=== PATIENT | female | born 1945 | race Caucasian/White ===

== ENCOUNTER 2018-07-31 02:00 | Outpatient (CLI) | payer MEDICARE, OTHER, SELFPAY ==
[2018-07-31 11:38] LABS: Anion Gap 9.7 mmol/L (3-11); BUN 24 mg/dL (7-18); CO2 26.3 mmol/L (21.0-32.0); CREATININE 0.78 mg/dL (0.55-1.02); Calcium 9.1 mg/dL (8.5-10.1); Chloride 102 mmol/L (98-107); Glucose 84 mg/dL (70-100); Potassium 4.1 mmol/L (3.5-5.1); Sodium 138 mmol/L (136-145); TSH (W/Ref FT4) 0.56 uIU/mL (0.358-3.74)
== END 2018-07-31 02:20 ==
PROVIDERS: PCP Family Medicine; Visit Provider Family Medicine
DX: I10 Essential (primary) hypertension (principal); E03.9 Hypothyroidism, unspecified
CPT/HCPCS: 36415; 80048; 84443

== ENCOUNTER 2019-08-12 02:50 | Outpatient (CLI) | payer MEDICARE, OTHER, SELFPAY ==
[2019-08-12 16:46] LABS: Anion Gap 6.1 mmol/L (3-11); BUN 18 mg/dL (7-18); CO2 30.9 mmol/L (21.0-32.0); CREATININE 0.75 mg/dL (0.55-1.02); Calcium 9.3 mg/dL (8.5-10.1); Calculated LDL 156 mg/dL (<100); Chloride 100 mmol/L (98-107); Cholesterol 243 mg/dL (<200); Glucose 91 mg/dL (74-106); HDL Cholesterol 71 mg/dL (40-60); Potassium 3.8 mmol/L (3.5-5.1); Sodium 137 mmol/L (136-145); Triglyceride 82 mg/dL (<150)
== END 2019-08-12 03:10 ==
PROVIDERS: PCP Family Medicine; Visit Provider Family Medicine
DX: E03.9 Hypothyroidism, unspecified (principal); E78.5 Hyperlipidemia, unspecified; I10 Essential (primary) hypertension
CPT/HCPCS: 36415; 80048; 80061; 84443

== ENCOUNTER 2019-11-06 19:32 | Outpatient (REF) | payer MEDICARE, OTHER, SELFPAY | END 2019-11-06 19:52 | LOC: LBN 19:32 | PROVIDERS: PCP Family Medicine | DX: R49.0 Dysphonia (principal) | CPT/HCPCS: 87070 ==

== ENCOUNTER 2020-07-30 10:05 | Outpatient (CLI) | payer MEDICARE, OTHER, SELFPAY ==
[2020-07-30 12:23] LABS: HCT 35.7 % (36.0-46.0); HGB 10.8 g/dL (11.2-15.7); MCH 24.3 pg (27.0-33.0); MCHC 30.3 % (32.0-36.0); MCV 80.2 fL (80-95); MPV 11.5 fL (8.0-11.0); Platelet Count 292 10^3/uL (130-400); RBC 4.45 10^6/uL (3.93-5.22); RDW-SD 40.7 fL; WBC 5.03 10^3/uL (4.4-10.8)
[2020-07-30 12:45] LABS: TSH (W/Ref FT4) 0.52 uIU/mL (0.36-3.74)
== END 2020-07-30 10:06 | disposition home or self-care (01) ==
LOC: LOS 10:06
PROVIDERS: PCP Family Medicine; Visit Provider Family Medicine
DX: D64.9 Anemia, unspecified (principal); E03.9 Hypothyroidism, unspecified
CPT/HCPCS: 36415; 85027; 84443

== ENCOUNTER 2020-07-30 16:07 | Outpatient (REF) | payer MEDICARE, OTHER, SELFPAY ==
[2020-07-30 19:29] LABS: Ferritin 7 ng/mL (8-252)
[2020-07-30 19:33] LABS: Iron 20 ug/dL (50-170); Total Iron Binding Capacity 481 ug/dL (250-450); Transferrin Sat 4 % (15-50)
== END 2020-07-30 16:08 | disposition home or self-care (01) ==
LOC: LBN 16:07
PROVIDERS: PCP Family Medicine; Visit Provider Family Medicine
DX: D64.9 Anemia, unspecified (principal)
CPT/HCPCS: 82728; 83540; 83550

== ENCOUNTER 2020-08-09 01:26 | Outpatient (CLI) | payer MEDICARE, OTHER, SELFPAY ==
--- NOTE | 2020-08-09 15:05 | DI.DEXA_ITS ---
Exam(s) XR DEXA BONE DENSITY W/WO IFEOMA EXAM: XR DEXA BONE DENSITY W/WO IFEOMA CLINICAL HISTORY: screening for osteoporosis IN POSTMENOPAUSAL WOMAN,Z78.0 TECHNIQUE: COMPARISON: CR LUMBAR SPINE COMPLETE from 03/18/2010 Prior DXA scan is 04/24/2007. FINDINGS: Lateral Spine Image: Unremarkable. No compression deformities identified. Left hip: Total T-Score: -1.0. This compares to -0.6 on the prior examination. Total Z-Score: 0.9 T- and Z-scores: Within normal limits. Lumbar Spine: Total T-Score: -3.3. This compares to -2.7 on the prior examination. Total Z-Score: -0.8 T- and Z-scores: Findings consistent with osteoporosis. IMPRESSION: Osteoporosis in the lumbar spine.
== END 2020-08-09 01:46 ==
PROVIDERS: PCP Family Medicine; Visit Provider Family Medicine
DX: M81.0 Age-related osteoporosis without current pathological fracture (principal); Z78.0 Asymptomatic menopausal state
CPT/HCPCS: 77080

== ENCOUNTER 2021-02-04 01:16 | Outpatient (CLI) | payer MEDICARE, OTHER, SELFPAY ==
[2021-02-04 12:59] LABS: HCT 42.6 % (36.0-46.0); HGB 13.3 g/dL (11.2-15.7); MCH 27.9 pg (27.0-33.0); MCHC 31.2 % (32.0-36.0); MCV 89.3 fL (80-95); MPV 10.8 fL (8.0-11.0); Platelet Count 243 10^3/uL (130-400); RBC 4.77 10^6/uL (3.93-5.22); RDW 11.2 % (11.7-14.6); RDW-SD 36.2 fL
[2021-02-04 13:22] LABS: Iron 85 ug/dL (50-170); Total Iron Binding Capacity 338 ug/dL (250-450); Transferrin Sat 25 % (15-50)
[2021-02-04 13:35] LABS: AST 27 U/L (15-37); CREATININE 0.7 mg/dL (0.55-1.02); Calculated LDL 175 mg/dL (<100); Cholesterol 253 mg/dL (<200); Ferritin 68 ng/mL (8-252); HDL Cholesterol 63 mg/dL (40-60); TSH (W/Ref FT4) 1.11 uIU/mL (0.36-3.74); Triglyceride 75 mg/dL (<150)
== END 2021-02-04 01:17 | disposition home or self-care (01) ==
LOC: LOS 01:17
PROVIDERS: PCP Family Medicine; Visit Provider Family Medicine
DX: E03.9 Hypothyroidism, unspecified (principal); E78.5 Hyperlipidemia, unspecified; D64.9 Anemia, unspecified; E11.9 Type 2 diabetes mellitus without complications; K76.0 Fatty (change of) liver, not elsewhere classified
CPT/HCPCS: 36415; 80061; 85027; 82565; 82728; 83540; 83550; 84443; 84450

== ENCOUNTER 2021-08-11 03:42 | Outpatient (CLI) | payer MEDICARE, OTHER, SELFPAY ==
[2021-08-11 12:22] LABS: HCT 43.1 % (36.0-46.0); HGB 13.5 g/dL (11.2-15.7); MCH 27.8 pg (27.0-33.0); MCHC 31.3 % (32.0-36.0); MCV 89 fL (80-95); Platelet Count 221 10^3/uL (130-400); RBC 4.85 10^6/uL (3.93-5.22); RDW 11.3 % (11.7-14.6); RDW-SD 36.3 fL; WBC 4.83 10^3/uL (4.4-10.8)
[2021-08-11 12:38] LABS: Iron 73 ug/dL (50-170)
[2021-08-11 12:48] LABS: TSH (W/Ref FT4) 0.23 uIU/mL (0.36-3.74)
[2021-08-11 13:15] LABS: FREE T4 1.16 ng/dL (0.76-1.46)
== END 2021-08-11 03:43 | disposition home or self-care (01) ==
LOC: LOS 03:43
PROVIDERS: PCP Family Medicine; Visit Provider Family Medicine
DX: D64.9 Anemia, unspecified (principal); E03.9 Hypothyroidism, unspecified; R53.83 Other fatigue
CPT/HCPCS: 36415; 85027; 83540; 84439; 84443

== ENCOUNTER 2021-12-16 01:54 | Outpatient (CLI) | payer MEDICARE, OTHER, SELFPAY ==
--- OUTSIDE RECORDS SUMMARY | 2021-12-16 01:59 | XMS_ITS | Encounter Summary ---
:1945 Author Organization [facility] [address] Care Team Providers Name Role Phone Mariluz Cortez MD Primary Care Provider Encounter Details Date Type Department Care Team Description 06/13/2013 Hospital Encounter Mammography at [facility], [facility] Mariluz Wan MD [address] [place] [address] [place] [address] Social History Tobacco Use Types Packs/Day Years Used Date Never Assessed Sex Assigned at Date Recorded Not on file documented as of this encounter Medications at Time of Discharge Medication Sig Dispensed Refills Start Date End Date levothyroxine (LEVOXYL) 75 mcg tablet 0 04/05/2006 documented as of this encounter Plan of Treatment Not on filedocumented as of this encounter Procedures Procedure Name Priority Date/Time Associated Diagnosis Comme nts MAMMO SCREENING CAD Routine 06/13/2013 1:35 PM Re sults for this BILATERAL EST procedure are i n the results section. documented in this encounter Results Mammo digital bilateral Screening with CAD (06/13/2013 1:35 PM EST) Anatomical Region Laterality Modality Breast Bilateral Mammography Specimen (Source) Anatomical Collection Method Collection Time Re ceived Time Location / / Volume Laterality 06/13/2013 1:35 PM EST Narrative 06/16/2013 11:26 AM EDT Reason for Exam: Screening ?? Technique: Craniocaudal (CC) and Medio-l ateral Oblique (MLO) views of both breasts obtained with direct digital cap ture. In addition to routine 2-D imaging, this exam was also performed wi th 3-D Tomographic Imaging (MLO and CC). ?? The exam was evaluated by CAD version 8. 3.17. ?? Findings: ?? This is a negative mammogram (ACR Catego ry 1). There is a stable fibroglandular pattern without significant change from prior studies. There is no mammographic evidence of can cer. The breasts are heterogeneously dense which limits mammographic sensitiv ity for the detection of malignancy. ?? CONCLUSION: This is a NEGATIVE mammogram (ACR Catego ry 1). ?? Routine screening mammography is recomme nded with the frequency dependent upon the patients age and breast cancer risk factors. A letter has been sent to this patient b y the breast imaging center. ?? Procedure Note Michelle Whitehead MD - 06/16/2013Formattin g of this note might be different from the original. Reason for Exam: Screening Technique: Craniocaudal (CC) and Medio-l ateral Oblique (MLO) views of both breasts obtained with direct digital cap ture. In addition to routine 2-D imaging, this exam was also performed wi th 3-D Tomographic Imaging (MLO and CC). The exam was evaluated by CAD version 8. 3.17. Findings: This is a negative mammogram (ACR Catego ry 1). There is a stable fibroglandular pattern without significant change from prior studies. There is no mammographic evidence of can cer. The breasts are heterogeneously dense which limits mammographic sensitiv ity for the detection of malignancy. CONCLUSION: This is a NEGATIVE mammogram (ACR Catego ry 1). Routine screening mammography is recomme nded with the frequency dependent upon the patients age and breast cancer risk factors. A letter has been sent to this patient b y the breast imaging center. Mariluz Cortez MD IMG MAMMO ORDERABLES documented in this encounter Visit Diagnoses Not on filedocumented in this encounter Care Teams Toll Relief Operator Relationship Specialty Start Date End Date Mariluz Cortez MD PCP - General 03/01/10 08/25/15 [address] [place] [address] documented as of this encounter
--- OUTSIDE RECORDS SUMMARY | 2021-12-16 01:59 | XMS_ITS | Encounter Summary ---
:1945 Author Organization [facility] Address [address] [place] [address] Care Team Providers Name Role Phone Cliff Cano MD Primary Care Provider Encounter Details Date Type Department Care Team Description 07/02/2017 Hospital Encounter Mammography at [facility] Cliff Cano Encounter for [facility] MD Kole screening mammogram Drive [address] [place] [address] for breast cancer [place], [place] [address] [address] [place], [place] [phone] [id number] Social History Tobacco Use Types Packs/Day Years [...] Diagnosis Comme nts MAMMO SCREENING CAD Routine 07/02/2017 2:00 PM Encounter for R esults for this AND MICHAEL BILATERAL EDT screening mammogram pr ocedure are in for breast cancer the result s section. documented in this encounter Results Mammo Screening Cad and Michael Bilateral (07/02/2017 2:00 PM EDT) Anatomical Region Laterality Modality Breast Bilateral Mammography Specimen (Source) Anatomical Location Collection Method / Collectio n Time Received Time / Laterality Volume Narrative 07/03/2017 10:12 AM EDT BILATERAL MAMMOGRAPHY REASON FOR EXAM: Screening TECHNIQUE: CC and MLO views were obtaine d of each breast using standard 2-D mammography as well as 3-D tomosynth esis. Computer aided detection was used. This is compared with prior images . FINDINGS: ??The breasts are heterogeneou sly dense, which may obscure small masses. There are no suspicious microcal cifications, masses, or areas of distortion. The pattern is stable. CONCLUSION: No mammographic evidence of malignancy. RECOMMENDATION: The [employer] and The Society of Breast Imaging recommend annual screenin g beginning at age 40 for the general female population. Screening juan m uld continue as long as a woman is in good health and is expected to live 1 0 more years or longer. All women should be familiar with the known benefi ts, limitations, and potential harms linked to breast cancer screening. They should also know how their breasts normally look and feel and repor t any breast changes to a health care provider right away. Some women - b ecause of their family history, a genetic tendency, or certain other facto rs - should be screened with MRIs along with mammograms. (The number of wo men who fall into this category is very small.) The patient and health care provider should discuss the patient history and decide if earlier sc reening and breast MRI are appropriate. A result letter has been sent to this pa dhruv by the [facility]. BIRADS CATEGORY 1: NEGATIVE Cliff Cano MD IMG MAMMO ORDERABLES documented in this encounter Visit Diagnoses Diagnosis Encounter for screening mammogram for br east cancer documented in this encounter Care Teams Fabrication Machine Operator Relationship Specialty Start Date End Date Cliff Cano MD PCP - General Family Medicine 08/26/[address] [place] [address] [address] [place] [address] documented as of this encounter
--- OUTSIDE RECORDS SUMMARY | 2021-12-16 01:59 | XMS_ITS | Encounter Summary ---
:1945 Author Organization [place] [address] Care Team Providers Name Role Phone Cliff Cano MD Primary Care Provider [phone] Encounter Details Date Type Department Care Team Description 06/11/2018 Hospital Encounter Mammography/DXA at [facility] Cano Encounter for [facility] MD Kole screening mammogram [address] [address] [phone] Social History Tobacco Use Types Packs/Day Years [...] Diagnosis Comme nts MAMMO SCREENING CAD Routine 06/11/2018 10:35 AM Encounter for Results for this AND MICHAEL BILATERAL EST screening mammogram pr ocedure are in for breast cancer the result s section. documented in this encounter Results Mammo Screening Cad and Michael Bilateral (06/11/2018 10:35 AM EST) Anatomical Region Laterality Modality Breast Bilateral Mammography Specimen (Source) Anatomical Location Collection Method / Collectio n Time Received Time / Laterality Volume Narrative 06/11/2018 10:54 AM EST BILATERAL MAMMOGRAPHY REASON FOR EXAM: Screening TECHNIQUE: [...] CONCLUSION: No mammographic evidence of malignancy. RECOMMENDATION: Medical organizations ag ree that annual screening mammography beginning at age 40 saves th e most lives. The risks of screening are negligible compared to dyi ng from breast cancer or suffering from more aggressive treatment required when detected at a later stage. No woman is at low risk for breast cancer. Some women, because of their family history, a genetic tendency, or c ertain other factors, should be screened with breast MRI along with mamm ograms. (The number of women who fall into this category is very small). The patient and health care provider should discuss the patient hist ory and decide if earlier screening and breast MRI are appropriate . Screening should continue as long as a woman is in good health and is expected to live 10 years or longer. Screening mammography may not de tect 10-15% of breast cancers. Women should report any breast changes t o a health care provider right away. A result letter has been sent to this pa dhruv by the [facility]. BIRADS CATEGORY 1: NEGATIVE Cliff Cano MD IMG MAMMO ORDERABLES documented in this encounter Visit Diagnoses Diagnosis Encounter for screening mammogram for br east cancer documented in this encounter Care Teams Lithographic Proofer Apprentice Relationship Specialty Start Date End Date Cliff Cano MD PCP - General Family Medicine 08/26/[address] [place] [address] [address] [place] [address] documented as of this encounter
--- OUTSIDE RECORDS SUMMARY | 2021-12-16 01:59 | XMS_ITS | Clinical Summary ---
:1945 Author Organization [facility] [place] [address] Care Team Providers Name Role Phone Cliff Cano MD Primary Care Provider Medications Medication Sig Dispensed Refills Start Date End Date Status levothyroxine (LEVOXYL) 75 mcg 0 6 Active tablet Family History Medical History Relation Comments Breast Cancer Paternal Aunt Relation Status Comments Paternal Aunt Social History Tobacco Use Types Packs/Day Years Used Date Never Assessed Sex Assigned at Date Recorded Not on file Plan of Treatment Health Maintenance Due Date Last Done Comments Covid-19 Vaccine (#1) 02/27/1949 Hepatitis C Screening 02/27/1962 Tdap adult 02/27/1963 Tetanus vaccine 02/27/1963 Zoster vaccine (1 of 2) 02/27/1994 Advance Directive 02/27/1999 Pneumoccocal Vaccine: 65+ (1 - PCV) 02/27/2009 Influenza (Flu) vaccine (1 of 1 - Influenza standard 12/08/2021 series) Bone Density Scan Completed 06/24/2014 Insurance Payer Benefit Plan / Subscriber ID Effective Dates Phone Addre ss Type Group MEDICARE MEDICARE PART [id number] 2009-Prese [phone] [id number] [place] [address] [employer] [id number] 2009-Prese [address] [place] [address] Care Teams Impact Hammer Operator Relationship Specialty Start Date End Date Cliff Cano MD PCP - General Family Medicine 08/26/[address] [place] [address]
--- OUTSIDE RECORDS SUMMARY | 2021-12-16 01:59 | XMS_ITS | Encounter Summary ---
:1945 Author Organization [facility] [place] [address] Care Team Providers Name Role Phone Mariluz Cortez MD Primary Care Provider Encounter Details Date Type Department Care Team Description 06/13/2012 Hospital Encounter Mammography [place] [facility] Mariluz Wan MD [address] [place] [address] [place] [address] Social History Tobacco Use Types Packs/Day [...] Diagnosis Comme nts MAMMO SCREENING CAD Routine 06/13/2012 10:49 AM R esults for this BILATERAL EST procedure are i n the results section. documented in this encounter Results Mammo digital bilateral Screening with CAD (06/13/2012 10:49 AM EST) Anatomical Region Laterality Modality Breast Bilateral Mammography Specimen (Source) Anatomical Collection Method Collection Time Re ceived Time Location / / Volume Laterality 06/13/2012 10:49 AM EST Narrative 06/14/2012 9:25 AM EST Reason for Exam: Screening Technique: Craniocaudal (CC) and Medio-l ateral Oblique (MLO) views of both breasts obtained with direct digital cap ture. In addition to the routine 2D imaging th is exam was also performed with 3D tomographic imaging in MLO and CC projec tions. The exam was evaluated by CAD version 8. 3.17. Findings: This is a negative mammogram (ACR Catego ry 1). ??There is a stable fibroglandular pattern without significa nt change from prior studies. There is no mammographic evidence of can cer. ??The breasts are heterogeneously dense which limits mammographic sensitiv ity for the detection of malignancy. CONCLUSION: This is a NEGATIVE mammogram (ACR Catego ry 1). ?? Routine screening mammography is recomme nded with the frequency dependent upon the patient's age and breast cancer risk factors. A letter has been sent to this patient b y the breast imaging center. Procedure Note Fran Marion MD - 06/14/2012Format ting of this note might be different from the original. Reason for Exam: Screening Technique: Craniocaudal (CC) and Medio-l ateral Oblique (MLO) views of both breasts obtained with direct digital cap ture. In addition to the routine 2D imaging th is exam was also performed with 3D tomographic imaging in MLO and CC projec tions. The exam was evaluated by CAD version 8. 3.17. Findings: This is a negative mammogram (ACR Catego ry 1). There is a stable fibroglandular pattern without significa nt change from prior studies. There is no mammographic evidence of can cer. The breasts are heterogeneously dense which limits mammographic sensitiv ity for the detection of malignancy. CONCLUSION: This is a NEGATIVE mammogram (ACR Catego ry 1). Routine screening mammography is recomme nded with the frequency dependent upon the patient's age and breast cancer risk factors. A letter has been sent to this patient b y the breast imaging center. Mariluz Cortez MD IMG MAMMO ORDERABLES documented in this encounter Visit Diagnoses Not on filedocumented in this encounter Care Teams Pci Security Consultant Relationship Specialty Start Date End Date Mariluz Cortez MD PCP - General 03/01/10 08/25/15 [address] [place] [address] documented as of this encounter
--- OUTSIDE RECORDS SUMMARY | 2021-12-16 01:59 | XMS_ITS | Encounter Summary ---
:1945 Author Organization [facility] [place] [address] Care Team Providers Name Role Phone Mariluz Cortez MD Primary Care Provider Encounter Details Date Type Department Care Team Description 06/12/2011 Hospital Encounter Mammography at [facility], [facility] Mariluz Wan MD [address] [place] [address] [place] [address] Social History Tobacco Use Types Packs/Day [...] Diagnosis Comme nts MAMMO SCREENING CAD Routine 06/12/2011 11:33 AM R esults for this BILATERAL EST procedure are i n the results section. documented in this encounter Results MAMMO DIGITAL BILATERAL SCREENING WITH CAD (06/12/2011 11:33 AM EST) Anatomical Region Laterality Modality Breast Bilateral Mammography Specimen (Source) Anatomical Collection Method Collection Time Re ceived Time Location / / Volume Laterality 06/12/2011 11:33 AM EST Narrative 06/14/2011 3:50 PM EST BILATERAL MAMMOGRAPHY ?? REASON FOR EXAM: Screening ?? TECHNIQUE: Cranio-caudal (CC) and mediol ateral oblique (MLO) views of both breasts obtained with direct digital cap ture. The exam was evaluated by CAD Version 8.3.17. In addition to the routi ne 2D imaging this exam was also performed with 3D tomographic imaging in MLO and CC projections. ?? FINDINGS: This is a negative mammogram ( ACR Category 1). There is a stable fibroglandular pattern without significa nt change as compared to prior studies. There is no mammographic evidence of can cer. ? The breasts are heterogeneously dense wh ich may limit mammographic sensitivity for the detection of malignancy. ? CONCLUSION ?? This is a NEGATIVE mammogram (ACR Catego ry 1). Routine screening mammography is recommended with the frequency dependent on the patient's age and breast cancer risk factors. ?? A letter has been sent to this patient b y the [facility]. Procedure Note Michelle Whitehead MD - 06/14/2011Formattin g of this note might be different from the original. BILATERAL MAMMOGRAPHY REASON FOR EXAM: Screening TECHNIQUE: Cranio-caudal (CC) and mediol ateral oblique (MLO) views of both breasts obtained with direct digital cap ture. The exam was evaluated by CAD Version 8.3.17. In addition to the routi ne 2D imaging this exam was also performed with 3D tomographic imaging in MLO and CC projections. FINDINGS: This is a negative mammogram ( ACR Category 1). There is a stable fibroglandular pattern without significa nt change as compared to prior studies. There is no mammographic evidence of can cer. The breasts are heterogeneously dense wh ich may limit mammographic sensitivity for the detection of malignancy. CONCLUSION This is a NEGATIVE mammogram (ACR Catego ry 1). Routine screening mammography is recommended with the frequency dependent on the patient's age and breast cancer risk factors. A letter has been sent to this patient b y the [facility] [place]. Mariluz Cortez MD IMG MAMMO ORDERABLES documented in this encounter Visit Diagnoses Not on filedocumented in this encounter Care Teams Truck Farmer Relationship Specialty Start Date End Date Mariluz Cortez MD PCP - General 03/01/10 08/25/15 [address] [place] [address] documented as of this encounter
--- OUTSIDE RECORDS SUMMARY | 2021-12-16 01:59 | XMS_ITS | Encounter Summary ---
:1945 Author Organization [facility] [address] Care Team Providers Name Role Phone Cliff Cano MD Primary Care Provider [phone] Encounter Details Date Type Department Care Team Description 06/29/2016 Hospital Encounter Mammography at [facility] Cliff Cano Visit for screening [facility] MD Kole mammogram [address] [place] [address] [address] [address] [place], [place] [phone] [address] Social History Tobacco Use Types Packs/Day Years [...] Diagnosis Comme nts MAMMO SCREENING CAD Routine 06/29/2016 10:38 AM Visit for scre ening Results for this AND MICHAEL BILATERAL EDT mammogram procedure are in the results section. documented in this encounter Results Mammo Screen CAD and Michael Bilat (Generic) (06/29/2016 10:38 AM EDT) Anatomical Region Laterality Modality Breast Bilateral Mammography Specimen (Source) Anatomical Location Collection Method / Collectio n Time Received Time / Laterality Volume Narrative 06/29/2016 10:44 AM EDT Bilateral mammography Reason for exam: Technique: CC and MLO views were obtaine d of each breast using standard 2-D mammography as well as 3-D tomosynthesis . Computer aided detection was used. Comparison: This is compared with prior images. Findings: The breasts are heterogeneousl y dense, which may obscure small masses. There are no suspicious microcalcificati ons, masses, or areas of distortion. The pattern is stable. Bilateral stable well -circumscribed benign-appearing nondominant masses. Conclusion: No mammographic evidence of malignancy. Recommendation: Routine screening. BI-RADS Category 2: Benign findings. * ??The [employer] an d The Society of Breast Imaging recommend annual screening beginning at age 40 for the general female population. * ??Screening should continue as long as a woman is in good health and is expected to live 10 more years or longer . * ??All women should be familiar with th e known benefits, limitations, and potential harms linked to breast cancer screening. They also should know how their breasts normally look and feel and report any breast changes to a health care provider right away. * ??Some women, because of their family history, a genetic tendency, or certain other factors, should be screened with M RIs along with mammograms. (The number of women who fall into this category is very small.) The patient and health care provider should discuss the patient hist ory and decide if earlier screening and breast MRI are appropriate. Cliff Cano MD IMG MAMMO ORDERABLES documented in this encounter Visit Diagnoses Diagnosis Visit for screening mammogram Other screening mammogram documented in this encounter Care Teams Dispersion Mixer Relationship Specialty Start Date End Date Cliff Cano MD PCP - General Family Medicine 08/26/[address] [place] [address] documented as of this encounter
--- OUTSIDE RECORDS SUMMARY | 2021-12-16 01:59 | XMS_ITS | Encounter Summary ---
:1945 Author Organization [facility] [place] [address] Care Team Providers Name Role Phone Mariluz Cortez MD Primary Care Provider Encounter Details Date Type Department Care Team Description 06/09/2010 Hospital Encounter [facility] Maycol Cortez MD [address] [place] [address] (Wo rk) Social History Tobacco Use Types Packs/Day Years Used Date Never Assessed Sex Assigned at Date Recorded Not on file documented as of this encounter Medications at Time of Discharge Medication Sig Dispensed Refills Start Date End Date levothyroxine (LEVOXYL) 75 mcg tablet 0 04/05/2006 documented as of this encounter Plan of Treatment Not on filedocumented as of this encounter Visit Diagnoses Not on filedocumented in this encounter Care Teams Internship Relationship Specialty Start Date End Date Mariluz Cortez MD PCP - General 03/01/10 08/25/15 [address] [place] [address] documented as of this encounter
--- OUTSIDE RECORDS SUMMARY | 2021-12-16 01:59 | XMS_ITS | Encounter Summary ---
:1945 Author Organization [facility] [place] [address] Care Team Providers Name Role Phone Mariluz Cortez MD Primary Care Provider Encounter Details Date Type Department Care Team Description 06/24/2014 [facility] [place] [address] Social History Tobacco Use Types Packs/Day [...] Priority Date/Time Associated Diagnosis Comme nts MAMMO 2D DIGITAL Routine 06/24/2014 10:59 AM Resu lts for this SCREEN DUC EDT procedure are i n BILATERAL the results section. documented in this encounter Results Mammography Screen Duc 2D Bilateral (06/24/2014 10:59 AM EDT) Anatomical Region Laterality Modality Breast Bilateral Mammography Specimen (Source) Anatomical Collection Method Collection Time Re ceived Time Location / / Volume Laterality 06/24/2014 10:59 AM EDT Narrative 06/25/2014 8:05 AM EDT Reason for Exam: Screening ?? [...] this patient b y the breast imaging [place]. ?? Procedure Note Melissa Smith MD - 5 Reason for Exam: Screening Technique: Craniocaudal (CC) [...] this patient b y the breast imaging [place]. Mariluz Cortez MD IMG MAMMO ORDERABLES documented in this encounter Visit Diagnoses Not on filedocumented in this encounter Care Teams E Commerce Manager Relationship Specialty Start Date End Date Mariluz Cortez MD PCP - General 03/01/10 08/25/15 [address] [place] [address] documented as of this encounter
--- OUTSIDE RECORDS SUMMARY | 2021-12-16 01:59 | XMS_ITS | Encounter Summary ---
:1945 Author Organization [facility] Address [facility] [place] [address] Care Team Providers Name Role Phone Mariluz Cortez MD Primary Care Provider Encounter Details Date Type Department Care Team Description 06/28/2015 Hospital Encounter Mammography at [facility] [place], Encounter for [facility] MD Mariluz screening mammogram [address] for breast cancer [place], [place], [address] [place] [address] Social History Tobacco Use Types Packs/Day Years [...] Diagnosis Comme nts MAMMO SCREENING CAD Routine 06/28/2015 1:40 PM Encounter for R esults for this AND DUC BILATERAL EDT screening mammogram pr ocedure are in for breast cancer the result s section. documented in this encounter Results Mammo Digital Bilateral Screening With CAD and Tomosynthesis (06/28/2015 1:40 PM EDT) Anatomical Region Laterality Modality Breast Bilateral Mammography Specimen (Source) Anatomical Location Collection Method / Collectio n Time Received Time / Laterality Volume Narrative 06/29/2015 9:10 AM EDT BILATERAL MAMMOGRAPHY REASON FOR EXAM: [...] No mammographic evidence of malignancy. RECOMMENDATION: [employer] and The Society of [...] Breast [facility] Center. BIRADS CATEGORY 1: NEGATIVE Mariluz Cortez MD IMG MAMMO ORDERABLES documented in this encounter Visit Diagnoses Diagnosis Encounter for screening mammogram for br east cancer documented in this encounter Care Teams Nitrate Operator Relationship Specialty Start Date End Date Mariluz Cortez MD PCP - General 03/01/10 08/25/15 [address] [place] [address] documented as of this encounter
--- OUTSIDE RECORDS SUMMARY | 2021-12-16 01:59 | XMS_ITS | Encounter Summary ---
:1945 [place] [address] Care Team Providers Name Role Phone Mariluz Cortez MD Primary Care Provider Encounter Details Date Type Department Care Team Description 05/25/2006 Orders Only Radiology Fran Marion MD [facility] [place] [address] DIAGNOSTIC RADIOLOGY [phone] [place] [id number] (Wo rk) Social History Tobacco Use Types Packs/Day Years Used Date Never Assessed Sex Assigned at Date Recorded Not on file documented as of this encounter Plan of Treatment Not on filedocumented as of this encounter Procedures Procedure Name Priority Date/Time Associated Diagnosis Comme nts FILM LIBRARY Routine 05/25/2006 9:30 AM Results f or this STORAGE ONLY MAMMO EST procedure are in the results section. documented in this encounter Results Film Library- Storage only Mammo (05/25/2006 9:30 AM EST) Anatomical Region Laterality Modality Other Specimen (Source) Anatomical Collection Method Collection Time Re ceived Time Location / / Volume Laterality 05/25/2006 9:30 AM EST Narrative 05/29/2013 9:50 PM EST This is a non-reportable exam. Procedure Note Rik Corado - 05/29/2013Formatting of t his note might be different from the original. This is a non-reportable exam. Fran Marion MD IMG FILM LIBRARY ORDERABLES documented in this encounter Visit Diagnoses Not on filedocumented in this encounter Care Teams Entry Specialist Relationship Specialty Start Date End Date Mariluz Cortez MD PCP - General 03/01/10 08/25/15 [address] [place] [address] documented as of this encounter
--- OUTSIDE RECORDS SUMMARY | 2021-12-16 02:00 | XMS_ITS | Encounter Summary ---
:1945 Author Organization [facility] Address [address] [place] [address] Care Team Providers Name Role Phone Unknown, Provider Primary Care Provider Encounter Details Date Type Department Care Team Description 01/24/2010 Results Only [facility] Phani Campoverde MD Laboratory Services - [address] [place] [address] [place] [address] [place] [address] [phone] Social History Tobacco Use Types Packs/Day Years Used Date Never Assessed Sex Assigned at Date Recorded Not on file documented as of this encounter Plan of Treatment Not on filedocumented as of this encounter Procedures Procedure Name Priority Date/Time Associated Diagnosis Comme [facility] SURGICAL PATHOLOGY Routine 01/24/2010 0:00 EDT Re sults for this procedure are i n the results section. documented in this encounter Results SURGICAL PATHOLOGY (01/24/2010 0:00 EDT) Pathology Report: SURGICAL PATHOLOGY REPORT ? T[facility]ARA MATHIAS Reports generated via [employer] interface contain original data; ? LAB however they are lacking the format of the original report. ? Caution should be taken when reading/interpreting unformatted reports. ? Name: ? BOUDREAUX, SYBIL ? Accession #: ? [id number] ? : ? 1945 (Age: 64) ??F ? Collec t Date: ? 01/24/2010 ? Location: ? [facility] ? R eceive Date: ? 01/24/2010 ? Provider: PHANI WALKO MD ? Copy to: LIBERTAD PATEL MD ? Final Pathologic Diagnosis: ? A. ?Colon, asce nding, polyp, biopsies: ? 1. ?Fragments o f hyperplastic polyps. ? B. ?Colon, sigm oid, biopsy: ? 1. ?No specific pathological findings. ? C. ?Rectum, hannah yp, biopsy: ? 1. ?Hyperplasti c polyp. ??See comment. ? Comment: ? Deeper sections were examined on specimen (C). ??(Dr. Fonseca)/ljn ? Document reviewed and electr onically signed by: ? SHADI B AMBAYE MD ? Report ??Date: 01/27/2010 15 :23 ? By the signature above, the attending physician certifies that he/she has ? personally conducted a gross and/or microscopic examination of the described ? specimens and rendered or co nfirmed the above diagnosis. ? Specimen(s) Received: ? A. ?Ascending c olon polyp (#1) ? B. ? Sigmoid colon (#2) ? C. ? rectal polyp (#3) ? Clinical History: ? Colorectal screen; B. ? colitis ? Gross Description: ? Received in [facility]' s fixative labelled Sybil Boudreaux and ascending colon polyp are two sanchez-pin k tissues measuring 0.2 x 0.2 x 0.2 cm and 0.8 x 0.4 x 0.2 cm. ??The larger speci men is trisected and submitted entirely as (A1) and ?? the smaller specimen is subm itted intact as (A2). ? Received in [facility]'s fixat steve labelled Sybil Boudreaux and sigmoid colon ? colitis is a sanchez-pink tissu e measuring 0.1 x 0.1 x 0.1 cm. ??The specimen is ? submitted entirely as (B). ? Received in [facility]'s fixat steve labelled Sybil Boudreaux and ? rectal polyp is a sanchez-pink tissue measuri ng 0.1 x 0.1 x 0.1 cm. ??The specimen is submitted ?? entirely as (C). ??(Danay grigsby)/kmm ? End of Report ? Specimen Performing Organization Address City/State/ZIP Code Phon e Number [facility] [address] [place] [address] SERVICES [facility] [address] [place] [address] documented in this encounter Visit Diagnoses Not on filedocumented in this encounter Care Teams Bander And Cellophaner Machine Relationship Specialty Start Date End Date Unknown, Provider, PCP - General 05/04/09 documented as of this encounter
--- OUTSIDE RECORDS SUMMARY | 2021-12-16 02:00 | XMS_ITS | Encounter Summary ---
:1945 Author Organization [facility] Address [address] [place] [address] Care Team Providers Name Role Phone Unknown, Provider Primary Care Provider Encounter Details Date Type Department Care Team Description 05/04/2009 Orders Only [facility] Maycol Cortez MD Laboratory Services - [address] [facility] [place] [address] [place] [address] [place] [address] [phone] Social History Tobacco Use Types Packs/Day Years Used Date Never Assessed Sex Assigned at Date Recorded Not on file documented as of this encounter Plan of Treatment Not on filedocumented as of this encounter Procedures Procedure Name Priority Date/Time Associated Comments Diagnosis HPV DETECTION, HIGH Routine 05/04/2009 19:38 Resu lts for this RISK TYPES EST procedure are i n the results section. CYTOPATHOLOGY Routine 05/04/2009 0:00 Results for this EST procedure are i n the results section. documented in this encounter Results HUMAN PAPILLOMA VIRUS DNA TEST (05/04/2009 19:38 EST) Specimen Description Cervix, ThinPrep [facility] L AB vial Result Negative for HPV [facility] types 16, 18, 31, 33, 35, 39, 45, 51, 52, 56, 58, 59, and 68. Report Status Final [facility] 05/12/2009 Specimen Performing Organization Address City/State/ZIP Code Phon e Number [facility] [address] [place] [address] SERVICES [facility] [address] [place] [address] CYTOPATHOLOGY (05/04/2009 0:00 EST) Pathology Report: CYTOPATHOLOGY REPORT ? TAMARA CHARLES EN ? LAB Reports generated via electr onic interface contain original data; ? however they are lacking the format of the original report. ? Caution should be taken when reading/interpreting unformatted reports. ? Name: ? SYBIL BOUDREAUX ? Accession #: ? [id number] ? : ? 1945 (Age: 64) ??F ?Collect Date: ? 05/04/2009 ? Location: ? [facility] ? Receive Date: ? 05/04/2009 ? Provider: ?LIBERTAD SPRINGER MAN MD ? Copy to: ? Specimen/Source: ? Pap Test, Cervix/Endocervix, ThinPrep Imaging System ? with manual evaluation ? Last Menstrual Period: ? Menstrual/ Status: ? Post Menopausal ? Other: ? HPVDX - HPV testing requeste d regardless of diagnosis on current ThinPrep Pap ?? test. ? SPECIMEN ADEQUACY ? Satisfactory for Eval uation ? - assessment of transformati on zone component not applicable ( e.g. atrophy, ? vaginal sample, hysterectomy ) ? GENERAL CATEGORIZATION ? Negative for Intraepi thelial Lesion or Malignancy ? Document reviewed and electr onically signed by: ? Yessenia aMdrigal, CT(ASCP) ? Report Date: ??01/28/ 2010 09:45 ? End of Report ? Specimen Performing Organization Address City/[facility]/ZIP Code Phon e Number [facility] [address] [place] [address] SERVICES [facility] [address] [place] [address] documented in this encounter Visit Diagnoses Not on filedocumented in this encounter Care Teams Bi Solutions Architect Relationship Specialty Start Date End Date Unknown, Provider, PCP - General 05/04/09 documented as of this encounter
--- OUTSIDE RECORDS SUMMARY | 2021-12-16 02:00 | XMS_ITS | Clinical Summary ---
:1945 Author Organization [facility] Address [address] [place] [address] Care Team Providers Name Role Phone Unknown, Provider Primary Care Provider Social History Tobacco Use Types Packs/Day Years Used Date Never Assessed Sex Assigned at Date Recorded Not on file Plan of Treatment Health Maintenance Due Date Last Done Comments Fall Risk Screening 02/27/2009 Care Teams Regulatory Administrator Relationship Specialty Start Date End Date Unknown, Provider, PCP - General 05/04/09
[2021-12-16 16:07] LABS: TSH (W/Ref FT4) 0.47 uIU/mL (0.36-3.74)
== END 2021-12-16 01:55 | disposition home or self-care (01) ==
LOC: LBO 01:55
PROVIDERS: PCP Family Medicine; Visit Provider Family Medicine
DX: E03.9 Hypothyroidism, unspecified (principal)
CPT/HCPCS: 36415; 84443

== ENCOUNTER 2022-01-31 10:29 | Outpatient (CLI) | payer MEDICARE, OTHER, SELFPAY ==
[2022-01-31 12:44] LABS: Abs Immature Grans 0.02 10^3/uL (0.0-0.06); HCT 43.8 % (36.0-46.0); HGB 14.3 g/dL (11.2-15.7); MCH 27.7 pg (27.0-33.0); MCHC 32.6 % (32.0-36.0); MCV 85 fL (80-95); MPV 11.4 fL (8.0-11.0); Platelet Count 278 10^3/uL (130-400); RBC 5.17 10^6/uL (3.93-5.22); RDW 11.9 % (11.7-14.6); WBC 8.11 10^3/uL (4.4-10.8)
[2022-01-31 13:01] LABS: ALT 34 U/L (14-59); AST 30 U/L (15-37); Alkaline Phosphatase 90 U/L (46-116); Anion Gap 9.5 mmol/L (3-11); BUN 20 mg/dL (7-18); Bilirubin, Total 0.3 mg/dL (0.2-1.0); CO2 26.5 mmol/L (21.0-32.0); CREATININE 0.8 mg/dL (0.55-1.02); Chloride 102 mmol/L (98-107); Estimated GFR 75.84 (mL/min/1.73m2); Glucose 120 mg/dL (74-106); Potassium 3.8 mmol/L (3.5-5.1); Sodium 138 mmol/L (136-145); Total Protein 6.8 g/dL (6.4-8.2)
[2022-01-31 13:41] LABS: Absolute Lymphocyte Count 2.35 10^3/uL (1.2-3.4); Absolute Monocyte Count 0.32 10^3/uL (0.1-0.8); Absolute Neutrophil Count 2.84 10^3/uL (1.2-6.7); Bands % 1
[2022-01-31 13:42] LABS: Diff Comment Manual Differential; RBC Morphology Normal
== END 2022-01-31 10:30 | disposition home or self-care (01) ==
LOC: LOS 10:29
PROVIDERS: PCP Family Medicine; Visit Provider Family Medicine
DX: D64.9 Anemia, unspecified (principal); R10.9 Unspecified abdominal pain
CPT/HCPCS: 36415; 80053; 85025

== ENCOUNTER → 2022-02-15 02:23 | Outpatient (CLI) | payer MEDICARE, OTHER, SELFPAY ==
--- NOTE | 2022-02-15 07:30 | DI.CT_ITS ---
Exam(s) CT ABDOMEN PELVIS W EXAM: CT ABDOMEN PELVIS W CLINICAL HISTORY: abd pain; generalized pruritis,r10.9 TECHNIQUE: Imaging Protocol: Axial computed tomography images with coronal and sagittal reformatted images were created and reviewed CONTRAST MATERIAL: Intravenous: Omnipaque 350 Contrast volume:66 mL Oral: Yes COMPARISON: CT ABD PELVIS WITH CONTRAST from 04/18/2010 FINDINGS: ABDOMEN: Lung Bases: Normal where visualized. There is a small hiatal hernia. Liver: Normal density. There are stable hepatic cysts. No suspicious hepatic masses are seen. Portal, Superior Mesenteric, and Splenic Veins: Unremarkable. Gallbladder and Biliary Tract: No radiodense calculus or dilation. Pancreas: Normal density, no abnormal calcifications or inflammatory process. Spleen: Normal. Adrenals: No masses seen. Kidneys: Normal size, contour and axis. No radiodense stones or obstructive uropathy. No masses seen. Abdominal Aorta: Abdominal portion non-dilated. There is atherosclerosis. Bowel: There is no evidence of bowel obstruction. There is a question of mild thickening of the fund us of the stomach. Appendix is unremarkable. Peritoneal Cavity: No ascites, collection or mesenteric inflammatory response. No free air. Lymph Nodes: Within normal limits. Bones: Within normal limits for the patient's age. No aggressive osseous lesion is identified. Soft Tissues: Unremarkable. PELVIS: Bladder: Symmetric distention, no gross wall thickening. Reproductive Organs: Unremarkable as visualized. Lymph Nodes: Within normal limits. Bones: Within normal limits for the patient's age. IMPRESSION: 1. Question of mild thickening of the wall of the fundus of the stomach. This may be due to underdis tention. Infectious/inflammatory process cannot be excluded. Upper GI or upper endoscopy should be considered to exclude mass. 2. No acute abdominal or pelvic process. RADIATION DOSE DELIVERED: 530.97mGy.cm Total DLP DATA REPOSITORY: All CT scans at this facility are submitted to the National Radiology Data Registry (NRDR) Dose Index Registry (DIR) with the [employer] (ACR). RADIATION OPTIMIZATION: All CT scans at this facility use at least one of these dose optimization te chniques: automated exposure control; mA and/or kV adjustment per patient size (includes targeted exa ms where dose is matched to clinical indication); or iterative reconstruction.
[2022-02-15] MEDS: Barium Sulfate 2% W/V-Berry Smoothie 450 ML BTL PO ×2 (13:55→13:56)
== END ==
PROVIDERS: PCP Family Medicine; Visit Provider Family Medicine
DX: L29.9 Pruritus, unspecified (principal); R10.9 Unspecified abdominal pain
CPT/HCPCS: 74177

== ENCOUNTER 2022-03-15 09:25 | Outpatient (CLI) | payer MEDICARE, OTHER, SELFPAY ==
[2022-03-15 12:20] LABS: Absolute Basophil Count 0.09 10^3/uL (0.0-0.2); Absolute Eosinophil Count 3.55 10^3/uL (0.0-0.7); Absolute Lymphocyte Count 1.63 10^3/uL (1.2-3.4); Absolute Monocyte Count 0.47 10^3/uL (0.1-0.8); Absolute Neutrophil Count 2.56 10^3/uL (1.2-6.7); Basophils % 1.1; Eosinophils % 42.8; HCT 40.9 % (36.0-46.0); HGB 13.4 g/dL (11.2-15.7); Lymphocytes % 19.6; MCHC 32.8 % (32.0-36.0); MCV 85 fL (80-95); MPV 11.8 fL (8.0-11.0); Monocytes % 5.7; Neutrophils % 30.8; Platelet Count 208 10^3/uL (130-400); RBC 4.79 10^6/uL (3.93-5.22); RDW 11.7 % (11.7-14.6); RDW-SD 36.7 fL
[2022-03-15 12:50] LABS: Diff Comment Diff Reviewed; RBC Morphology Normal
== END 2022-03-15 09:26 | disposition home or self-care (01) ==
LOC: LOS 09:25
PROVIDERS: PCP Family Medicine; Visit Provider Family Medicine
DX: D64.9 Anemia, unspecified (principal)
CPT/HCPCS: 36415; 85025

== ENCOUNTER → 2022-05-01 09:21 | Outpatient (BNVA) | payer MEDICARE, OTHER, SELFPAY | PROVIDERS: PCP Family Medicine; Referring Provider Family Medicine; Visit Provider Surgery | DX: K31.89 Other diseases of stomach and duodenum (principal); K44.9 Diaphragmatic hernia without obstruction or gangrene; R63.4 Abnormal weight loss; K21.9 Gastro-esophageal reflux disease without esophagitis; I70.90 Unspecified atherosclerosis | CPT/HCPCS: 99203; 99242 ==

== ENCOUNTER 2022-05-26 09:03 | Day surgery (SDC) | payer MEDICARE, OTHER, SELFPAY ==
--- NOTE | 2022-05-25 20:52 | PDOC.DSDIS_ITS ---
Date of service: 05/26/22 Time of Service: 11:05 Discharge Plan Disposition Condition: Good Discharge Details Reason For Visit: EGD Attending Provider: Jared Ramos Primary Care Provider: Cliff Cano Home Meds and New Rx's Prescriptions: Continued levothyroxine 100 mcg tablet 100 mcg PO DIRECTED Rx Instructions: TAKE MON AND FRI, 75 MCH OTHER 5 DAYS Ensure Liquid PO DAILY omeprazole 40 mg capsule,delayed release(DR/EC) 40 mg PO DAILY Qty: 30 12RF calcium carbonate-vitamin D3 [Calcium 500 With D] 1 EACH tablet 1 ea PO DAILY levothyroxine 75 mcg tablet 75 mcg PO as directed Qty: 65 3RF Rx Instructions: TAKE 5 DAYS A WK, 100 MCG MON AND FRI Discharge Instructions Instructions: Upper Endoscopy (GEN) Additional Instructions: Kiara, we were able to complete your upper endoscopy without any difficulty today. You do have a large hiatal hernia, that may explain some of your symptoms. There is an operation to fix this, but it is not something that we typically do at [facility]. We can certainly refer you to a specialty clinic for consideration of that surgery if you are interested. Otherwise, I did not see any worrisome findings. I did perform biopsies in multiple parts of your stomach as we talked about before the procedure. We will make an appointment for you to follow-up with Dr. Coleman on the results of those biopsies. In the meantime, continue to take the medications as you have been prescribed. 1. If tolerated, consume a soft, low fiber diet for 1-2 days. [address] Do not drive, drink alcohol, operate machinery, make critical decisions, or do activities that require coordination or balance for 24 hours. 3. You may experience a sore throat for 24 to 48 hours. You may use throat lozenges or gargle with warm salt water to relieve the discomfort. 4. Because air was put into your stomach during the procedure, you may experience some belching. 5. Go directly to the emergency room if you notice any of the following: Develop chills (warm to touch), or if you have a thermometer and your temperature is above 101 Difficulty breathing or difficultly swallowing Persistent vomiting Severe abdominal pain, other than gas cramps Severe chest pain Black, tarry stools Any bleeding ? exceeding one tablespoon 6. Call your physician if the site where your intravenous was started becomes red, swollen, painful, and warm to touch. 7. Your physician has reviewed your pre-procedure medications. Please continue to take those medications as previously ordered. You will be given specific information/education regarding any changes to your medications before leaving. Referrals: Jory Coleman DO [OSTEOPATHIC DOCTOR] - Activity:: Activity as Tolerated Equipment/Supplies:: No Equipment Needed Diet:: As Tolerated DS: Diagnosis Discharge Diagnosis (1) GERD (gastroesophageal reflux disease): Status: Chronic Asessment and Plan: Follow-up on biopsy results
--- NOTE | 2022-05-25 20:54 | W.PM.ENDDOP ---
Date of service: 05/26/22 Time of Service: 11:07 Endoscopy Report DATE OF PROCEDURE: 05/26/22 PRE-OP DIAGNOSIS: Gastritis POST-OP DIAGNOSIS: other (Hiatal hernia) PROCEDURE: EGD SURGEON: Jared Ramos ANESTHESIA TYPE: General:No Airway ESTIMATED BLOOD LOSS: 10 PATHOLOGY: other (Random biopsies of duodenum, gastric antrum and greater curvature, GE junction, distal esophagus) COMPLICATIONS: None DISPOSITION: same day INDICATIONS: Meli is a 77-year-old woman with nonspecific abdominal pain, symptoms consistent with gastroesophageal reflux disease or peptic ulcer disease. PROCEDURE START TIME: 10:41 PROCEDURE END TIME: 10:48 FINDINGS: Large hiatal hernia, normal Z-line and GE junction at 38 cm PROCEDURE DESCRIPTION: After the initiation of monitored anesthetic care, and with the assistance of a bite block, I advanced a standard gastroscope through the mouth past the hypopharynx and into the esophagus.? Under the direct vision of the scope, I advanced down the esophagus into the stomach.? There was a large hiatal hernia. There was a fair amount of the proximal stomach within the hernia. There was also bile reflux from the duodenum up into the stomach. I evacuated this. I advanced beyond diaphragm hiatus, I performed retroflexion. Generally speaking, the anatomy of the stomach looked normal.? After that, I gently advanced the scope around the incisura angularis and examined the pylorus.? This also appeared normal.? Next, I advanced the scope through the pylorus into the duodenum.? The mucosa was pink and healthy appearing.? There were no abnormalities.? I was able to visualize bile draining into the duodenum through the ampulla Vater. I perform some random biopsies of the duodenum. ?Next, I began retracting the endoscope.? With the scope back in the stomach, I performed biopsies of the gastric antrum, as well as the greater curvature. I backed the scope up to the GE junction, which was at 38 cm from the incisors. The Z-line was normal and uniform appearing. I perform some biopsies of the GE junction as well as the distal esophagus.?Finally, I withdrew the scope along the length of the esophagus taking great care to examine the entirety of the mucosa.? I did not appreciate any abnormalities.
[2022-05-26 09:05] VITALS: BP 188/97; PULSE 82; RESP 18; TEMP 36.7; O2SAT 98
[2022-05-26] MEDS: Lactated Ringers 1,000 ML 80 ML IV (09:32)
--- NOTE | 2022-05-26 10:07 | W.ANESPRE ---
General Info Date of Service Date Performed: 05/26/22 Height: 5 ft 1 in Weight: 46.4 kg Body Mass Index (BMI): 19.3 Surgical Procedure: Operation Date: 05/26/22 11:05 Proposed Procedure Side Surgeon p Gastroscopy w/Biopsy Jared Ramos MD Meds Allergies and Home Medications Allergies Allergy/AdvReac Type Severity Reaction Status Date / Time Penicillins Allergy Mild RASH Verified 05/26/22 09:18 Home Medication Medication Instructions Recorded calcium carbonate 500 mg-vitamin 1 ea PO DAILY 07/02/12 D3 10 mcg (400 unit) tablet (Calcium 500 With D) levothyroxine 75 mcg tablet 75 mcg PO as directed #65 tabs 12/21/21 levothyroxine 100 mcg tablet 100 mcg PO DIRECTED 03/17/22 food supplemt, lactose-reduced ml PO DAILY 05/01/22 (Ensure oral liquid) omeprazole 40 mg capsule,delayed 40 mg PO DAILY #30 caps 05/01/22 release Current Visit Medications: Current Medications Generic Name Dose Route Start Last Admin Trade Name Gucciq PRN Reason Stop Dose Admin Hyoscyamine Sulfate 0.125 mg 05/25/22 20:55 Hyoscyamine 0.125 Mg Sl/Oral/Chew SL DIRECTED PRN Ringer's Solution 1,000 mls @ 80 mls/hr 05/26/22 06:00 05/26/22 09:32 IV 05/26/22 23:59 80 mls/hr INFUSION DAV Administration IV Miscellaneous Supplies 1 each 05/26/22 06:00 Iv Access IV 05/26/22 23:59 DIRECTED DAV Ondansetron HCl 4 mg 05/25/22 20:55 Ondansetron 4 Mg/2 Ml Vial IVP Q4H PRN PRN Nausea / Vomiting Sodium Chloride 0 ml 05/26/22 06:00 Normal Saline Flush 10 Ml Syr IV 05/26/22 23:59 PRN PRN Sodium Chloride 0 ml 05/26/22 06:00 Normal Saline 10 Ml Vial IJ 05/26/22 23:59 DIRECTED PRN Sterile Water 0 ml 05/26/22 06:00 Water,Injection,Sterile 10 Ml Vial IJ 05/26/22 23:59 DIRECTED PRN PFSH Active Problems Active Problems: Problem Status Onset Code Diverticula of colon K57.30 GERD (gastroesophageal reflux disease) K21.9 Hiatal hernia K44.9 Atherosclerosis I70.90 Urinary frequency R35.0 Eosinophilia D72.10 Gastric wall thickening K31.89 Generalized pruritus L29.9 Abdominal pain R10.9 Actinic keratoses L57.0 Pharyngitis J02.9 Hoarseness of voice R49.0 Orthostasis I95.1 Herpes zoster B02.9 Enlarged lymph node 12/20/11 R59.9 Essential hypertension 07/03/13 I10 Hyperlipidemia 07/02/12 E78.5 Hypothyroidism 07/02/12 E03.9 Osteoporosis M81.0 Surgical History Surgical History Extraction of cataract 08/31/15, 09/14/15 S/P colonoscopy Tobacco Smoking/Tobacco Use Status: Never Passive smoking exposure: Yes Second hand exposure: Yes (In the past) Alcohol Alcohol Intake: current Alcohol intake frequency: holidays/special occasions only Alcohol type: wine Substance Use Substance use: Never Substance use type: does not use Vital Signs and Lab Results Vital Signs Most Recent Vital Signs in EMR: Most Recent Vital Signs Temp Pulse Resp BP Pulse Ox 36.7 C 82 18 188/97 H 98 05/26/22 09:05 05/26/22 09:05 05/26/22 09:05 05/26/22 09:05 05/26/22 09:05 Lab Results Blood Type / Crossmatch: No Data to Display Complete Blood Count: No Data to Display Complete Metabolic Panel: No Data to Display Liver Function Panel: No Data to Display Coagulation Panel: No Data to Display Cardiac Panel: No Data to Display Arterial Blood Gas: No Data to Display Venous Blood Gas: No Data to Display Pancreas Panel: No Data to Display Thyroid Panel: No Data to Display Infectious Disease: No Data to Display Blood Cultures: No Data to Display Toxicology Panel: No Data to Display Anesthesia Assessment and Plan Anesthesia History Personal History: No History of Anesthesia Complications Family History: No Family History of Anesthesia Complications Exercise Tolerance Exercise Tolerance: Metabolic Equivalents>4 Cardiac & Pulmonary Exam Cardiac Exam: Normal S1/S2 Heart Sounds Pulmonary Exam: Clear Bilateral Breath Sounds Implantable Cardiac Device Does patient have a Pacemaker or an ICD?: No Airway Exam Known Difficult Airway: No Mallampati Class: 2 Mouth Opening: Normal (> 3cm) Thyromental Distance: Greater than 3 cm Neck Range of Motion: Full ROM Neck Circumference: Normal Teeth Condition: Normal Dentition ASA Classification ASA Score: ASA 2 Emergency Case?: No NPO Status NPO Status: NPO Clears >2 hours, Solids >8 hours Anesthesia Plan Resuscitation Status: Full Code Anesthesia Technique: General Anesthesia Airway Planned: Natural Airway Monitors Used: Standard Monitors
[2022-05-26 10:12] VITALS: BMI 19.3
--- NOTE | 2022-05-26 10:43 | STOM_PTH ---
PATIENT: Meli Rm LOC: [facility] U#:[id number] AGE/SX: 77/F ROOM: RE05/26/[address]: Jared Ramos MD : 1945 BED: DIS: 05/26/2022 SPEC #: [id number] RECD: 05/26/22 12:59 STATUS: [facility] #: [id number] NICCI: 05/26/22 10:[address]: Jared Ramos DEPT: Surgical Specimen RECD BY: Solange Fortune ENTERED: 05/26/22 13:00 SP TYPE: STOMACH OTHR DR: Cliff Cano MD Tissues: 1 - BIOPSY BOWEL 2 - STOMACH BIOPSY 3 - STOMACH BIOPSY 4 - ESOPHAGUS BIOPSY 5 - ESOPHAGUS BIOPSY Procedures: GROSS AND MICRO LEVEL 4 IMMUNOPEROXIDASE STAIN SPECIAL STAIN 1 Comments: [id number]
[2022-05-26 10:58] VITALS: BP 106/54; PULSE 74; RESP 16; TEMP 36.3; O2SAT 96
--- NOTE | 2022-05-26 11:24 | W.ANESPOSTOP ---
Postoperative Evaluation Date, Time and Location Date Performed: 05/26/22 Time Performed: 11:00 Patient Location: Day Surgery Unit Vital Signs Most Recent Imported Vital Signs: Most Recent Vital Signs Temp Pulse Resp BP Pulse Ox 36.3 C L 74 16 106/54 L 96 05/26/22 10:58 05/26/22 10:58 05/26/22 10:58 05/26/22 10:58 05/26/22 10:58 Pain Score Most Recent Pain Score: Most Recent Pain Score Pain Level 0 05/26/22 10:58 Assessment Mental Status: Awake (Alert & Oriented to Patient Baseline) Airway and Respiratory Function: Patent airway with normal (patient baseline) respiratory exam Cardiovascular Function: Hemodynamically Stable Hydration Status: Adequately Hydrated Nausea & Vomiting: No Nausea or Vomiting Pain: Pt. Denies Any Pain Peripheral Nerve Block: Patient did not receive a nerve block
[2022-05-26 11:35] VITALS: BP 165/82; PULSE 61; RESP 18; TEMP 36.2; O2SAT 99
== END 2022-05-26 12:08 | disposition home or self-care (01) ==
PROVIDERS: PCP Family Medicine; Visit Provider Surgery
PROC: 0DJ68ZZ Inspection of Stomach, Via Natural or Artificial Opening Endoscopic (ICD-10-PCS; CPT 43235; principal; 2022-05-26 11:00)
DX: K21.9 Gastro-esophageal reflux disease without esophagitis (principal); K44.9 Diaphragmatic hernia without obstruction or gangrene
CPT/HCPCS: 43239; 88305; 88312; 88361; J2704

== ENCOUNTER 2022-08-08 04:51 | Outpatient (CLI) | payer MEDICARE, OTHER, SELFPAY ==
[2022-08-08 12:38] LABS: Abs Immature Grans 0.01 10^3/uL (0.0-0.06); Absolute Basophil Count 0.06 10^3/uL (0.0-0.2); Absolute Eosinophil Count 0.38 10^3/uL (0.0-0.7); Absolute Lymphocyte Count 1.28 10^3/uL (1.2-3.4); Absolute Monocyte Count 0.28 10^3/uL (0.1-0.8); Absolute Neutrophil Count 1.62 10^3/uL (1.2-6.7); Basophils % 1.7; Eosinophils % 10.5; HCT 44.3 % (36.0-46.0); Immature Grans % 0.3; Lymphocytes % 35.3; MCH 27.7 pg (27.0-33.0); MCHC 31.6 % (32.0-36.0); MCV 88 fL (80-95); MPV 11.8 fL (8.0-11.0); Monocytes % 7.7; Neutrophils % 44.5; Platelet Count 210 10^3/uL (130-400); RBC 5.05 10^6/uL (3.93-5.22); RDW 11.5 % (11.7-14.6); RDW-SD 37.2 fL; WBC 3.63 10^3/uL (4.4-10.8)
[2022-08-08 12:42] LABS: Iron 109 ug/dL (50-170); Total Iron Binding Capacity 376 ug/dL (250-450); Transferrin Sat 29 % (15-50)
[2022-08-08 12:46] LABS: Hemoglobin A1C 5.7 % (<5.7)
[2022-08-08 13:03] LABS: Magnesium 1.9 mg/dL (1.8-2.4); TSH (W/Ref FT4) 0.24 uIU/mL (0.36-3.74)
[2022-08-08 13:23] LABS: FREE T4 1.33 ng/dL (0.76-1.46)
== END 2022-08-08 04:52 | disposition home or self-care (01) ==
LOC: LOS 04:51
PROVIDERS: PCP Family Medicine; Visit Provider Family Medicine
DX: E03.9 Hypothyroidism, unspecified (principal); D64.9 Anemia, unspecified; E11.51 Type 2 diabetes mellitus with diabetic peripheral angiopathy without gangrene; I70.209 Unspecified atherosclerosis of native arteries of extremities, unspecified extremity; E83.42 Hypomagnesemia
CPT/HCPCS: 36415; 83036; 83540; 83550; 83735; 84439; 84443; 85025

== ENCOUNTER 2022-08-10 06:01 | Day surgery (SDC) | payer MEDICARE, OTHER, SELFPAY ==
--- NOTE | 2022-08-09 21:17 | W.PM.DSUDISC ---
Date of service: 08/10/22 Time of Service: 07:52 Discharge Plan Disposition Patient Disposition: Home Condition: Good Discharge Details Reason For Visit: EGD Attending Provider: Jared Ramos Primary Care Provider: Cliff Cano Home Meds and New Rx's Prescriptions: New sucralfate [Carafate] 1 gram tablet 1 g PO BID Qty: 60 2RF Rx Instructions: Take once in the morning, and once in the evening on an empty stomach. No Action levothyroxine 100 mcg tablet 100 mcg PO DIRECTED Rx Instructions: TAKE MON AND FRI, 75 MCH OTHER 5 DAYS Ensure Liquid PO DAILY calcium carbonate-vitamin D3 [Calcium 500 With D] 1 EACH tablet 1 ea PO DAILY levothyroxine 75 mcg tablet 75 mcg PO as directed Qty: 65 3RF Rx Instructions: TAKE 5 DAYS A WK, 100 MCG MON AND FRI Discharge Instructions Additional Instructions: Kiara, we were able to complete your upper endoscopy today without any difficulty. Similar to last time, the stomach generally appears healthy. I do not see any ulcers, or active signs of inflammation. Like we talked about before the procedure, for multiple biopsies of the stomach to assess for Helicobacter pylori. Incidentally, there was a small amount of bile that was within your stomach. This is not unusual, and it can cause some bloating type symptoms. I have provided a new prescription for for a medicine called Carafate, which is also known as sucralfate. This is typically taken once in the morning on an empty stomach, and once in the evening on an empty stomach. I think it would be very reasonable to try this. If you prefer to wait for the biopsy results before making a decision, that would also be very reasonable. 1. If tolerated, consume a soft, low fiber diet for 1-2 days. [address] Do not drive, drink alcohol, operate machinery, make critical decisions, or do activities that require coordination or balance for 24 hours. 3. You may experience a sore throat for 24 to 48 hours. You may use throat lozenges or gargle with warm salt water to relieve the discomfort. 4. Because air was put into your stomach during the procedure, you may experience some belching. 5. Go directly to the emergency room if you notice any of the following: Develop chills (warm to touch), or if you have a thermometer and your temperature is above 101 Difficulty breathing or difficultly swallowing Persistent vomiting Severe abdominal pain, other than gas cramps Severe chest pain Black, tarry stools Any bleeding ? exceeding one tablespoon 6. Call your physician if the site where your intravenous was started becomes red, swollen, painful, and warm to touch. 7. Your physician has reviewed your pre-procedure medications. Please continue to take those medications as previously ordered. You will be given specific information/education regarding any changes to your medications before leaving. Stand Alone Forms: Anesthesia Discharge InstCanelo Hirsch (DSU) Activity:: Activity as Tolerated Diet:: As Tolerated Discharge Orders Discharge Orders: Discharge Order (Routine); Ordered 08/09/22 Ordered By: Jared Ramos Discharge Data Discharge Date/Time-TO BE ENTERED AT DEPARTURE: 08/10/22 08:38 DS: Diagnosis Discharge Diagnosis (1) Helicobacter pylori (H. pylori): Status: Acute Asessment and Plan: Follow-up on biopsy results
--- NOTE | 2022-08-09 21:19 | W.PM.ENDDOP ---
Date of service: 08/10/22 Time of Service: 08:46 Endoscopy Report DATE OF PROCEDURE: 08/10/22 PRE-OP DIAGNOSIS: Helicobacter pylori gastritis POST-OP DIAGNOSIS: same PROCEDURE: EGD with biopsies SURGEON: Jared Ramos ANESTHESIA TYPE: MAC ESTIMATED BLOOD LOSS: 10 PATHOLOGY: other (Gastric antrum, body, and cardia biopsies) COMPLICATIONS: None DISPOSITION: same day INDICATIONS: Meli is a 77-year-old woman with biopsy-proven Helicobacter pylori gastritis. She completed clarithromycin based triple therapy. She is undergoing surveillance EGD to confirm eradication of H. pylori PROCEDURE START TIME: 07:37 PROCEDURE END TIME: 07:53 FINDINGS: Hiatal hernia PROCEDURE DESCRIPTION: After the initiation of monitored anesthetic care, and with the assistance of a bite block, I advanced a standard gastroscope through the mouth past the hypopharynx and into the esophagus.? Under the direct vision of the scope, I advanced down the esophagus into the stomach.? The GE junction and Z-line were normal-appearing, and measured between 38 and 39 cm. The hiatal hernia appeared to be around 45 cm. Once I entered the stomach, I performed a brief inspection, followed by retroflexion towards the gastric cardia.? Again, there was evidence of a hiatal hernia containing the GE junction and gastric cardia. This appeared normal.? After that, I gently advanced the scope around the incisura angularis and examined the pylorus.? This also appeared normal.? Next, I advanced the scope through the pylorus into the duodenum.? The mucosa was pink and healthy appearing.? There were no abnormalities.? I was able to visualize bile draining into the duodenum through the ampulla Vater. ?Next, I began retracting the endoscope.? Once back in the stomach proper, I perform some random biopsies of the gastric antrum, gastric body, and gastric cardia. I did not see any evidence of ulceration around the edge of the hiatal hernia, and the stomach appeared to slide freely along this. Finally, I withdrew the scope along the length of the esophagus taking great care to examine the entirety of the mucosa.? I did not appreciate any abnormalities.
[2022-08-10 06:15] VITALS: BP 182/87; PULSE 69; RESP 16; TEMP 36.6; O2SAT 99
[2022-08-10] MEDS: Lactated Ringers 1,000 ML 80 ML IV (06:49)
--- NOTE | 2022-08-10 07:03 | W.ANESPRE ---
General Info Date of Service Date Performed: 08/10/22 Height: 5 ft 1 in Weight: 44.8 kg Body Mass Index (BMI): 18.6 Surgical Procedure: Operation Date: 08/10/22 07:35 Proposed Procedure Side Surgeon p Gastroscopy w/Biopsy Jared Ramos MD Meds Allergies and Home Medications Allergies Allergy/AdvReac Type Severity Reaction Status Date / Time Penicillins Allergy Mild RASH Verified 08/10/22 06:29 Home Medication Medication Instructions Recorded calcium carbonate 500 mg-vitamin 1 ea PO DAILY 07/02/12 D3 10 mcg (400 unit) tablet (Calcium 500 With D) levothyroxine 75 mcg tablet 75 mcg PO as directed #65 tabs 12/21/21 levothyroxine 100 mcg tablet 100 mcg PO DIRECTED 03/17/22 food supplemt, lactose-reduced ml PO DAILY 05/01/22 (Ensure oral liquid) Current Visit Medications: Current Medications Generic Name Dose Route Start Last Admin Trade Name Freq PRN Reason Stop Dose Admin Hyoscyamine Sulfate 0.125 mg 08/09/22 21:20 Hyoscyamine 0.125 Mg Sl/Oral/Chew SL DIRECTED PRN Ringer's Solution 1,000 mls @ 80 mls/hr 08/10/22 06:00 08/10/22 06:49 IV 09/08/22 23:59 80 mls/hr INFUSION DAV Administration IV Miscellaneous Supplies 1 each 08/10/22 06:00 Iv Access IV 09/08/22 23:59 DIRECTED DAV Ondansetron HCl 4 mg 08/09/22 21:20 Ondansetron 4 Mg/2 Ml Vial IVP Q4H PRN PRN Nausea / Vomiting Sodium Chloride 0 ml 08/10/22 06:00 Normal Saline Flush 10 Ml Syr IV 09/08/22 23:59 PRN PRN Sodium Chloride 0 ml 08/10/22 06:00 Normal Saline 10 Ml Vial IJ 09/08/22 23:59 DIRECTED PRN Sterile Water 0 ml 08/10/22 06:00 Water,Injection,Sterile 10 Ml Vial IJ 09/08/22 23:59 DIRECTED PRN PFSH Active Problems Active Problems: Problem Status Onset Code Gait instability R26.81 Helicobacter pylori (H. pylori) A04.8 Diverticula of colon K57.30 GERD (gastroesophageal reflux disease) K21.9 Hiatal hernia K44.9 Atherosclerosis I70.90 Urinary frequency R35.0 Eosinophilia D72.10 Gastric wall thickening K31.89 Generalized pruritus L29.9 Abdominal pain R10.9 Actinic keratoses L57.0 Pharyngitis J02.9 Hoarseness of voice R49.0 Orthostasis I95.1 Herpes zoster B02.9 Enlarged lymph node 12/20/11 R59.9 Essential hypertension 07/03/13 I10 Hyperlipidemia 07/02/12 E78.5 Hypothyroidism 07/02/12 E03.9 Osteoporosis M81.0 Surgical History Surgical History Extraction of cataract 08/31/15, 09/14/15 History of esophagogastroduodenoscopy (EGD) (~05/26/22) S/P colonoscopy Tobacco Smoking/Tobacco Use Status: Never Passive smoking exposure: Yes Second hand exposure: Yes (In the past) Alcohol Alcohol Intake: current Alcohol intake frequency: a few times a month Alcohol type: beer and wine Substance Use Substance use: Never Substance use type: does not use Vital Signs and Lab Results Vital Signs Most Recent Vital Signs in EMR: Most Recent Vital Signs Temp Pulse Resp BP Pulse Ox 36.6 C 69 16 182/87 H 99 08/10/22 06:15 08/10/22 06:15 08/10/22 06:15 08/10/22 06:15 08/10/22 06:15 Lab Results Blood Type / Crossmatch: No Data to Display Complete Blood Count: White Blood Count 3.63 10^3/uL (4.4-10.8) L 08/08/22 08:44 Red Blood Count 5.05 10^6/uL (3.93-5.22) 08/08/22 08:44 Hemoglobin 14.0 g/dL (11.2-15.7) 08/08/22 08:44 Hematocrit 44.3 % (36.0-46.0) 08/08/22 08:44 Platelet Count 210 10^3/uL (130-400) 08/08/22 08:44 Complete Metabolic Panel: Magnesium 1.9 mg/dL (1.8-2.4) 08/08/22 08:44 Hemoglobin A1c 5.7 % (<5.7) 08/08/22 08:44 Liver Function Panel: No Data to Display Coagulation Panel: No Data to Display Cardiac Panel: No Data to Display Arterial Blood Gas: No Data to Display Venous Blood Gas: No Data to Display Pancreas Panel: No Data to Display Thyroid Panel: Thyroid Stimulating Hormone (TSH) 0.24 uIU/mL (0.36-3.74) L 08/08/22 08:44 Infectious Disease: No Data to Display Blood Cultures: No Data to Display Toxicology Panel: No Data to Display Anesthesia Assessment and Plan Anesthesia History Personal History: No History of Anesthesia Complications Family History: No Family History of Anesthesia Complications Exercise Tolerance Exercise Tolerance: Metabolic Equivalents>4 Cardiac & Pulmonary Exam Cardiac Exam: Normal S1/S2 Heart Sounds Pulmonary Exam: Clear Bilateral Breath Sounds Implantable Cardiac Device Does patient have a Pacemaker or an ICD?: No Airway Exam Known Difficult Airway: No Mallampati Class: 1 Mouth Opening: Normal (> 3cm) Thyromental Distance: Greater than 3 cm Neck Range of Motion: Full ROM Neck Circumference: Normal Teeth Condition: Normal Dentition ASA Classification ASA Score: ASA 2 Emergency Case?: No NPO Status NPO Status: NPO Clears >2 hours, Solids >8 hours Anesthesia Plan Resuscitation Status: Full Code Anesthesia Technique: General Anesthesia Airway Planned: Natural Airway Monitors Used: Standard Monitors
[2022-08-10 07:08] VITALS: BMI 18.6
--- NOTE | 2022-08-10 07:21 | HPE_ITS ---
Date of service: 08/10/22 Time of Service: 07:21 Assessment and Plan Assessment and plan (1) Helicobacter pylori (H. pylori): Status: Acute Assessment and plan: We reviewed the risks and benefits of gastroscopy with biopsy again today. She was able to provide informed consent. We will move ahead with gastroscopy and biopsies. History of Present Illness History of Present Illness Chief Complaint: Helicobacter pylori Narrative: Zeinab is a 77-year-old woman with a past medical history of Helicobacter pylori gastritis. She was treated with clarithromycin-based triple therapy. She is here in follow-up for testing to ensure eradication of H. pylori PFS All Active Problems Gait instability (Acute) Helicobacter pylori (H. pylori) (Acute) Diverticula of colon (Acute) GERD (gastroesophageal reflux disease) (Chronic) Hiatal hernia (Chronic) Atherosclerosis (Acute) Urinary frequency (Acute) Eosinophilia (Acute) Gastric wall thickening (Acute) Generalized pruritus (Acute) Abdominal pain (Acute) Actinic keratoses (Acute) Pharyngitis (Acute) chronic Hoarseness of voice (Acute) Orthostasis (Acute) Herpes zoster (Acute) Enlarged lymph node (Acute 12/20/11) 5 mm supraclavicular Essential hypertension (Acute 07/03/13) white coat Hyperlipidemia (Acute 07/02/12) Hypothyroidism (Acute 07/02/12) Osteoporosis (Acute) 2014 DEXA at [facility] [place] T -3.2 lumbar Surgical History Extraction of cataract 08/31/15, 09/14/15 History of esophagogastroduodenoscopy (EGD) (~05/26/22) S/P colonoscopy Family History Mother , KIDNEY FAILURE at age 89. Diabetes Essential hypertension Heart disease Hyperlipidemia Father , 97 No problems noted. Brother , 62 Diabetes Neoplasm BRAIN Brain cancer Brother Diabetes Essential hypertension A-FIB Heart disease Hyperlipidemia Maternal Grandfather , 58 Schizophrenia ? Paternal Grandfather , 83 Parkinson's disease Maternal Grandmother Diabetes Kidney disease Paternal Grandmother Stroke Brother No problems noted. Social History Smoking/Tobacco Use Status: Never Second Hand Exposure: Yes (In the past) Smoking risk assessment performed?: Yes Alcohol Intake: current Alcohol Intake frequency: a few times a month Alcohol type: beer and wine Drug use: Never Substance use type: does not use Caregiver/Support person: No Household members: none Housing: house Communication Needs: Hard of Hearing Do you need help understanding health information?: Often Pets and animals: No Sexually active: No Do you think of yourself as: straight/heterosexual Current gender identity: female What is your relationship status?: never How often do you talk on the phone with friends or family?: three or more times per week How often do you get together with friends or relatives?: three or more times per week How often do you attend hoahaoism or zoroastrianism services?: 4 or more times per year Do you belong to any clubs or organized social groups?: no Panel score (0-1 are the most socially isolated patients): 2 What type of physical activity do you participate in: walking and other Details: Yard work, gardening, XC skiing Duration: > 90 minutes/day Frequency: 3-4 times per week Addie/Congregational: None Special addie needs: No Seatbelt use: always Drive intox or ride w/intox driver guard: No Do you feel safe at home: Yes Do you feel safe in your relationship?: Yes Meds Allergies and Home Medications Allergies Allergy/AdvReac Type Severity Reaction Status Date / Time Penicillins Allergy Mild RASH Verified 08/10/22 06:29 Home Medications Medication Instructions Recorded Confirmed Type calcium carbonate 500 mg-vitamin 1 ea PO DAILY 07/02/12 08/03/22 History D3 10 mcg (400 unit) tablet (Calcium 500 With D) levothyroxine 75 mcg tablet 75 mcg PO as directed #65 tabs 12/21/21 08/10/22 Rx levothyroxine 100 mcg tablet 100 mcg PO DIRECTED 03/17/22 08/10/22 History food supplemt, lactose-reduced ml PO DAILY 05/01/22 08/03/22 History (Ensure oral liquid) Exam Const General: cooperative, healthy appearing and comfortable Orientation: awake and oriented x3 Eyes General: appearance normal, both eyes and all related structures Conjunctivae: conjunctivae normal Sclera: sclerae normal Resp Effort & Inspection: normal respiratory effort and able to speak in complete sentences Auscultation: clear to auscultation bilaterally Cardio Jugular venous pressure: no JVD Rate: regular rate Rhythm: regular rhythm Heart Sounds: S1 normal and S2 normal GI Inspection: non-distended Palpation: soft, no guarding, no hernias and nontender Auscultation: normal bowel sounds Skin General skin exam: normal turgor Neuro General: patient alert, patient awake and patient oriented x3 Cognition: normal cognition Extrem Right lower extremity: no edema Left lower extremity: no edema Results Last Vital Signs Temp 97.9 F 08/10/22 06:15 Pulse 69 08/10/22 06:15 Resp 16 08/10/22 06:15 BP 182/87 H 08/10/22 06:15 Pulse Ox 99 08/10/22 06:15 Time Spent Time spent with Patient: <40 minutes Time was spent: preparing to see the patient(eg.review tests) and counseling the patient
--- NOTE | 2022-08-10 07:35 | STOM_PTH ---
PATIENT: Meli Rm LOC: [facility] U#:[id number] AGE/SX: 77/F ROOM: RE08/10/[address]: Jared Ramos MD : [id number] BED: DIS: 08/10/2022 SPEC #: [id number] RECD: 08/10/22 12:43 STATUS: JADE [facility] #: [id number] NICCI: 08/10/22 07:[address]: Jared Ramos DEPT: Surgical Specimen RECD BY: Solange Fortune ENTERED: 08/10/22 12:44 SP TYPE: STOMACH OTHR DR: Cliff Cano MD Tissues: 1 - STOMACH BIOPSY 2 - STOMACH BIOPSY 3 - STOMACH BIOPSY Procedures: GROSS AND MICRO LEVEL 4 IMMUNOPEROXIDASE STAIN Comments: [id number]
[2022-08-10 07:54] VITALS: BP 100/61; PULSE 86; RESP 17; TEMP 36.6; O2SAT 97
[2022-08-10 08:22] VITALS: BP 128/70; PULSE 74; RESP 17; TEMP 36.6; O2SAT 99
--- NOTE | 2022-08-10 08:31 | W.ANESPOSTOP ---
Postoperative Evaluation Date, Time and Location Date Performed: 08/10/22 Time Performed: 07:55 Patient Location: Day Surgery Unit Vital Signs Most Recent Imported Vital Signs: Most Recent Vital Signs Temp Pulse Resp BP Pulse Ox 36.6 C 74 17 128/70 99 08/10/22 08:22 08/10/22 08:22 08/10/22 08:22 08/10/22 08:22 08/10/22 08:22 Pain Score Most Recent Pain Score: Most Recent Pain Score Pain Level 0 08/10/22 08:22 Assessment Mental Status: Awake (Alert & Oriented to Patient Baseline) Airway and Respiratory Function: Patent airway with normal (patient baseline) respiratory exam Cardiovascular Function: Hemodynamically Stable Hydration Status: Adequately Hydrated Nausea & Vomiting: No Nausea or Vomiting Pain: Pt. Denies Any Pain Peripheral Nerve Block: Patient did not receive a nerve block
== END 2022-08-10 08:38 | disposition home or self-care (01) ==
PROVIDERS: PCP Family Medicine; Visit Provider Surgery
PROC: 0DJ68ZZ Inspection of Stomach, Via Natural or Artificial Opening Endoscopic (ICD-10-PCS; CPT 43235; principal; 2022-08-10 07:30)
DX: Z09 Encounter for follow-up examination after completed treatment for conditions other than malignant neoplasm (principal); K21.9 Gastro-esophageal reflux disease without esophagitis; K44.9 Diaphragmatic hernia without obstruction or gangrene; K29.50 Unspecified chronic gastritis without bleeding
CPT/HCPCS: 43239; 88305; 88361; J2704

== ENCOUNTER 2023-02-05 03:27 | Outpatient (CLI) | payer MEDICARE, OTHER, SELFPAY ==
[2023-02-05 12:29] LABS: Abs Immature Grans 0.01 10^3/uL (0.0-0.06); Absolute Basophil Count 0.05 10^3/uL (0.0-0.2); Absolute Eosinophil Count 0.19 10^3/uL (0.0-0.7); Absolute Lymphocyte Count 1.34 10^3/uL (1.2-3.4); Absolute Monocyte Count 0.27 10^3/uL (0.1-0.8); Absolute Neutrophil Count 1.93 10^3/uL (1.2-6.7); Basophils % 1.3; HCT 41.9 % (36.0-46.0); HGB 13.5 g/dL (11.2-15.7); Immature Grans % 0.3; Lymphocytes % 35.4; MCH 28.5 pg (27.0-33.0); MCHC 32.2 % (32.0-36.0); MCV 89 fL (80-95); MPV 11.6 fL (8.0-11.0); Monocytes % 7.1; Neutrophils % 50.9; Platelet Count 171 10^3/uL (130-400); RBC 4.73 10^6/uL (3.93-5.22); RDW 11.9 % (11.7-14.6); RDW-SD 38.5 fL; WBC 3.79 10^3/uL (4.4-10.8)
[2023-02-05 12:51] LABS: TSH (W/Ref FT4) 0.65 uIU/mL (0.36-3.74)
== END 2023-02-05 03:28 | disposition home or self-care (01) ==
PROVIDERS: PCP Family Medicine; Visit Provider Family Medicine
DX: D64.9 Anemia, unspecified (principal); E03.9 Hypothyroidism, unspecified
CPT/HCPCS: 36415; 84443; 85025

== ENCOUNTER 2023-11-01 10:40 | Outpatient (CLI) | payer MEDICARE, OTHER, SELFPAY ==
[2023-11-01 12:38] LABS: Calculated LDL 160 mg/dL (<100); Cholesterol 270 mg/dL (<200); HDL Cholesterol 103 mg/dL (40-60); TSH (W/Ref FT4) 0.37 uIU/mL (0.36-3.74); Triglyceride 38 mg/dL (<150)
[2023-11-01 12:45] LABS: Hemoglobin A1C 5.8 % (<5.7)
[2023-11-01 12:48] LABS: Iron 97 ug/dL (50-170); Total Iron Binding Capacity 370 ug/dL (250-450); Transferrin Sat 26 % (15-50)
== END 2023-11-01 10:41 | disposition home or self-care (01) ==
LOC: LOS 10:40
PROVIDERS: PCP Family Medicine; Visit Provider Family Medicine
DX: E11.51 Type 2 diabetes mellitus with diabetic peripheral angiopathy without gangrene (principal); I70.209 Unspecified atherosclerosis of native arteries of extremities, unspecified extremity; E03.9 Hypothyroidism, unspecified; D64.9 Anemia, unspecified; E78.5 Hyperlipidemia, unspecified; R07.81 Pleurodynia; K21.9 Gastro-esophageal reflux disease without esophagitis; R10.9 Unspecified abdominal pain
CPT/HCPCS: 36415; 80061; 83036; 83540; 83550; 84443

== ENCOUNTER → 2023-11-05 01:26 | Outpatient (CLI) | payer MEDICARE, OTHER, SELFPAY ==
--- NOTE | 2023-11-05 07:30 | DI.RAD_ITS ---
Exam(s) XR RIBS ONLY RT EXAM: XR RIBS ONLY RT CLINICAL HISTORY: rib pain, right,R07.81 TECHNIQUE: 2D digital imaging was performed.Three images were obtained. COMPARISON: CR CHEST 2 VIEWS PA,LAT from 02/26/2012 FINDINGS: LUNGS: The visualized lungs are clear. PLEURAL SPACE: No right pleural effusion or pneumothorax. BONE:Normal. RIGHT RIBS: Normal. No evidence of a displaced rib fracture. OTHER FINDINGS:Normal. IMPRESSION: 1. No acute pulmonary findings. 2. No evidence of a displaced rib fracture. DATA REPOSITORY: RADIATION DOSE DELIVERED:
== END ==
PROVIDERS: PCP Family Medicine; Visit Provider Family Medicine
DX: R07.81 Pleurodynia (principal)
CPT/HCPCS: 71100

== ENCOUNTER 2024-05-01 10:20 | Outpatient (CLI) | payer MEDICARE, OTHER, SELFPAY ==
[2024-05-01 13:12] LABS: Hemoglobin A1C 5.8 % (<5.7)
[2024-05-01 13:27] LABS: TSH (W/Ref FT4) 0.78 uIU/mL (0.36-3.74)
== END 2024-05-01 10:21 | disposition home or self-care (01) ==
LOC: LOS 10:20
PROVIDERS: PCP Family Medicine; Referring Provider Family Medicine; Visit Provider Family Medicine
DX: R73.9 Hyperglycemia, unspecified (principal); E03.9 Hypothyroidism, unspecified; K21.9 Gastro-esophageal reflux disease without esophagitis; H92.02 Otalgia, left ear; I10 Essential (primary) hypertension
CPT/HCPCS: 36415; 83036; 84443

== ENCOUNTER 2024-10-30 10:30 | Outpatient (CLI) | payer MEDICARE, OTHER, SELFPAY ==
[2024-10-30 12:42] LABS: Calculated LDL 119 mg/dL (<100); Cholesterol 234 mg/dL (<200); Estimated GFR 87.37 (mL/min/1.73m2); HDL Cholesterol 105 mg/dL (>or=50); Triglyceride 50 mg/dL (<150)
[2024-10-30 12:49] LABS: Hemoglobin A1C 5.6 % (<5.7)
[2024-10-30 12:53] LABS: Glucose Negative (Negative)
== END 2024-10-30 10:31 | disposition home or self-care (01) ==
PROVIDERS: PCP Family Medicine; Referring Provider Family Medicine; Visit Provider Family Medicine
DX: I10 Essential (primary) hypertension (principal); E78.5 Hyperlipidemia, unspecified; R73.9 Hyperglycemia, unspecified; R30.0 Dysuria
CPT/HCPCS: 36415; 80061; 81003; 82565; 83036